=== PATIENT | female | born 1985 | race American Indian/Alaskan Native ===

== ENCOUNTER 2016-10-07 09:32 | Emergency (ER) | payer BC ==
[2016-10-07 09:32] VITALS: BMI 25.1
[2016-10-07 09:43] VITALS: RESP 18; O2SAT 100
[2016-10-07] MEDS ORDERED: Sodium Chloride 0.9% 1,000 ML IV ONE (10:05)
--- NOTE | 2016-10-07 10:34 | C.PDOC ---
History Of Present Illness 31 y/o female presents to the ED with complains of pelvic pain and cramping intermittently for the past week. Pt is currently 17 weeks pregnanct, . 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 She denies vaginal bleeding/discharge, nausea, vomiting, diarrhea, dysuria/hematuria, chest pain, SOB. Time Seen by Provider: 10/07/16 09:41 Chief Complaint (Nursing): Abdominal Pain History Per: Patient History/Exam Limitations: no limitations Onset/Duration Of Symptoms: Days Current Symptoms Are (Timing): Still Present Severity: Moderate Location Of Pain/Discomfort: Other (pelvic) Radiation Of Pain To:: None Quality Of Discomfort: Cramping Associated Symptoms: denies: Nausea, Vomiting, Diarrhea, Chest Pain, Urinary Symptoms Exacerbating Factors: None Alleviating Factors: None Abnormal Vaginal Bleeding: No Past Medical History Reviewed: Historical Data, Nursing Documentation, Vital Signs Vital Signs: Last Vital Signs Temp 97.4 F L 10/07/16 13:12 Pulse 63 10/07/16 13:12 Resp 18 10/07/16 13:12 BP 115/78 10/07/16 13:12 Pulse Ox 100 10/07/16 13:12 - Medical History PMH: Asthma - [facility] Procedures NEBULIZER THERAPY (04/30/14) Family History: States: No Known Family Hx - Social History Hx Alcohol Use: No Hx Substance Use: No - Immunization History Hx Tetanus Toxoid Vaccination: No Hx Influenza Vaccination: No Hx Pneumococcal Vaccination: No Review Of Systems Except As Marked, All Systems Reviewed And Found Negative. Constitutional: Negative for: Fever, Chills Cardiovascular: Negative for: Chest Pain, Palpitations Respiratory: Negative for: Cough, Shortness of Breath Gastrointestinal: Negative for: Nausea, Vomiting, Abdominal Pain, Diarrhea Genitourinary: Positive for: Pelvic Pain. Negative for: Dysuria, Hematuria, Vaginal Discharge, Vaginal Bleeding Physical Exam - Physical Exam Appears: Well, Non-toxic, No Acute Distress Skin: Warm, Dry, No Rash Head: Normacephalic Oral Mucosa: Moist Neck: Supple Cardiovascular: Rhythm Regular Respiratory: Normal Breath Sounds, No Rales, No Rhonchi, No Wheezing Gastrointestinal/Abdominal: Normal Exam, Bowel Sounds, Soft, No Tenderness, No Guarding, No Rebound, Other (abdomen gravid, fundus about 2-3cm below umbilicus) Extremity: Normal ROM Extremity: Bilateral: Atraumatic Neurological/Psych: Oriented x3 ED Course And Treatment - Laboratory Results Result Diagrams: 10/07/16 10:32 10/07/16 10:32 O2 Sat by Pulse Oximetry: 100 (room air ) Pulse Ox Interpretation: Normal - CT Scan/US OB ULTRASOUND Other Rad Studies (CT/US): Read By Radiologist, Radiology Report Reviewed CT/US Interpretation: Findings: There is a single living fetus in cephalic presentation. Right lateral placenta. The placenta is not previa. There are no adnexal masses or cysts evident. Multiple probable uterine fibroids. For example : 3.7 x 2.7 x 3.6 cm mid right uterine fibroid; 2.4 x 2.4 x 2.2 cm midline lower uterine segment fibroid ; 2.7 x 2.0 x 2.9 cm fundal fibroid. Cervix length measures approximately 3.1 cm. Measurements and calculations: Fetus has a composite sonographic age of 18 weeks 1 day. This calculation is based on the biparietal diameter, head circumference, abdominal circumference, and femur length. Estimated heart rate 137.2 beats per min. The study was performed for the emergent evaluation of pain, and the whole anatomic survey of the fetus was not performed. This should be performed on an outpatient elective basis as clinically warranted. Impression: Single living fetus with a composite sonographic age of 18 weeks 1 day. Estimated heart rate 137.2 beats per min. Progress Note: Plan: Blood work, UA, transvaginal US ordered and reviewed. Patient given PO tylenol and IV NS bolus. Reevaluation Time: 13:10 Reassessment Condition: Improved (Patient reassessed, currently resting comfortably, in no pain/distress. On exam, abdomen is soft and nontender. UA shows UTI - Patient given Rx for Macrobid and was instructed to follow up with literary writer within 1 week. She understands she should return to ED if symptoms worsen.) Disposition Counseled Patient/Family Regarding: Studies Performed, Diagnosis, Need For Followup, Rx Given - Disposition Referrals: [facility] [Outside] Disposition: HOME/ ROUTINE Disposition Time: 13:00 Condition: STABLE Additional Instructions: FOLLOW UP WITH YOUR HANDLE LATHE OPERATOR WITHIN 1 WEEK USE MEDICATION UNTIL FINISHED RETURN TO ER IF SYMPTOMS WORSEN Prescriptions: Nitrofurantoin Macrocrystals [Macrobid] 1 cap PO BID #14 cap Instructions: Urinary Tract Infection in (ED) Print Language: TUVALUAN - POA Present On Arrival: None - Clinical Impression Clinical Impression: UTI in - Scribe Statement The provider has reviewed the documentation as recorded by the Scribe Koffi Moralez Provider Attestation: All medical record entries made by the Scribe were at my direction and personally dictated by me. I have reviewed the chart and agree that the record accurately reflects my personal performance of the history, physical exam, medical decision making, and the department course for this patient. I have also personally directed, reviewed, and agree with the discharge instructions and disposition.
[2016-10-07 10:45] LABS: BASO # 0.1 K/uL (0.0-0.2); BASO % 0.6 % (0.0-2.0); EOS # 0.8 K/uL (0.0-0.7); EOS % 7.2 % (0.0-4.0); HEMATOCRIT 36.5 % (34.0-47.0); LYMPH # 1.9 K/uL (1.0-4.3); LYMPH % 16.7 % (20.0-40.0); MEAN CELL VOLUME 89.4 fL (81.0-99.0); MEAN CORPUSCULAR HEMOGLOBIN 29.6 pg (27.0-31.0); MEAN CORPUSCULAR HGB CONC 33.2 g/dL (33.0-37.0); MEAN PLATELET VOLUME 10.2 fL (7.2-11.7); MONO # 0.9 K/uL (0.0-0.8); MONO % 7.6 % (0.0-10.0); RED CELL DISTRIBUTION WIDTH 12.8 % (11.5-14.5); WHITE BLOOD COUNT 11.6 K/uL (4.8-10.8)
[2016-10-07 10:47] LABS: RBC URINE 3 /hpf (0-3); URINE BACTERIA OCC (<OCC); URINE BILIRUBIN NEGATIVE (NEGATIVE); URINE BLOOD NEGATIVE (NEGATIVE); URINE CALCIUM OXALATE CRYSTALS RARE /hpf (<OCC); URINE COLOR Yellow (YELLOW); URINE GLUCOSE (UA) NORMAL (Normal); URINE KETONE NEGATIVE (NEGATIVE); URINE LEUKOCYTE ESTERASE 2+ Leu/uL (Negative); URINE PROTEIN NEGATIVE (NEGATIVE); URINE UROBILINOGEN NORMAL mg/dL (0.2-1.0); WBC URINE 20 /hpf (0-5)
[2016-10-07 10:57] LABS: CHLORIDE 101 mmol/L (98-107)
[2016-10-07 10:58] LABS: POTASSIUM 3.9 mmol/L (3.6-5.2); SODIUM 135 mmol/L (132-148)
[2016-10-07 11:00] LABS: AST/SGOT 22 U/L (14-36); BILIRUBIN,TOTAL 0.7 mg/dL (0.2-1.3); CARBON DIOXIDE 24 mmol/L (22-30); GFR AFRICAN-AMERICAN > 60
[2016-10-07 11:01] LABS: ALB/GLOB RATIO 1.2 (1.0-2.1); ALKALINE PHOSPHATASE 44 U/L (38-126); ALT/SGPT 18 U/L (9-52); BLOOD UREA NITROGEN 7 mg/dL (7-17); CALCIUM 9.6 mg/dl (8.6-10.4); GLUCOSE,RANDOM 85 mg/dL (65-105); TOTAL PROTEIN 7.6 g/dL (6.3-8.3)
[2016-10-07] MEDS ORDERED: Sodium Chloride 0.9% 1,000 ML ONE (11:05)
--- NOTE | 2016-10-07 11:23 | US ---
OB , limited Comparison: None available Technique: Real-time ultrasound was performed through the pelvis. Findings: There is a single living fetus in cephalic presentation. Right lateral placenta. The placenta is not previa. There are no adnexal masses or cysts evident. Multiple probable uterine fibroids. For example: 3.7 x 2.7 x 3.6 cm mid right uterine fibroid; 2.4 x 2.4 x 2.2 cm midline lower uterine segment fibroid ; 2.7 x 2.0 x 2.9 cm fundal fibroid. Cervix length measures approximately 3.1 cm. Measurements and calculations: Fetus has a composite sonographic age of 18 weeks 1 day. This calculation is based on the biparietal diameter, head circumference, abdominal circumference, and femur length. Estimated heart rate 137.2 beats per min. The study was performed for the emergent evaluation of pain, and the whole anatomic survey of the fetus was not performed. This should be performed on an outpatient elective basis as clinically warranted. Impression: Single living fetus with a composite sonographic age of 18 weeks 1 day. Estimated heart rate 137.2 beats per min.
[2016-10-07 13:13] VITALS: BP 115/78; PULSE 63; TEMP 97.4
== END 2016-10-07 13:13 | disposition home or self-care (01) ==
LOC: C.ER 09:32
DX: O23.42 Unspecified infection of urinary tract in pregnancy, second trimester (principal); Z3A.17 17 weeks gestation of pregnancy
CPT/HCPCS: 76815; 80053; 81001; 84702; 85025; 87086; 96360; 99285; J7040